=== PATIENT | male | born 2000 | race Caucasian/White ===

== ENCOUNTER 2020-08-19 20:13 | Emergency (ER) | payer BC, OTHER ==
[~2020-08-19] VITALS: Ht 177.8 cm; Wt 83.5 kg
[2020-08-19] MEDS ORDERED: ZITHROMAX500 MG PO (22:54)
[2020-08-19] MEDS ORDERED: TUSNEL LIQUID178 ML PO (22:54)
[2020-08-19] MEDS ORDERED: DOLOGEN CAPLET1 EACH PO (22:54)
== END 2020-08-19 23:41 | disposition home or self-care (01) ==
LOC: ER 20:13
DX: R53.81 Other malaise (principal); B96.0 Mycoplasma pneumoniae [M. pneumoniae] as the cause of diseases classified elsewhere

== ENCOUNTER 2021-11-17 14:16 | Emergency (ER) | payer BC ==
[~2021-11-17] VITALS: Ht 177.8 cm; Wt 96.6 kg
[~2021-11-17 14:16] MED LIST: DOLOGEN CAPLET1 EACH PO; TUSNEL LIQUID178 ML PO; ZITHROMAX500 MG PO
[2021-11-17] MEDS ORDERED: KETO10TA2 PO (17:11)
== END 2021-11-17 17:19 | disposition home or self-care (01) ==
LOC: ER 14:16
DX: M79.671 Pain in right foot (principal)